=== PATIENT | male | born 1965 | race Caucasian/White ===

== ENCOUNTER 2016-04-05 13:01 | Emergency (ER) | payer SELFPAY ==
[~2016-04-05] VITALS: Ht 160 cm; Wt 67.1 kg
[~2016-04-05 13:01] MED LIST: CIPRO500 MG PO; FLAGYL250 MG PO
[2016-04-05 13:03] VITALS: BP 102/64
[2016-04-05] MEDS ORDERED: IBUPROFEN200 MG PO (13:09)
[2016-04-05] MEDS ORDERED: PENICILLIN PO (13:09)
--- NOTE | 2016-04-05 14:31 | NUR ---
DR MOBLEY ASSESSING THE PT AT BEDSIDE
--- NOTE | 2016-04-05 14:31 | NUR ---
50/M BIB C/O FEVER, COUGH/CONGESTION X3DAYS. STS TAKING PENICILLIN AND IBUPROFEN AT HOME. LAST TAKEN IBUPROFEN AT 1030. DENIES N/V/D; SKIN IS PINK/WARM/DRY; AAOX4 WITH EVEN AND STEADY GAIT; LUNGS CLEAR BL; HR EVEN AND REGULAR; PT DENIES ANY CP, OR SOB AT THIS TIME; PATIENT STATES PAIN OF 0/10 AT THIS TIME; VSS; PATIENT POSITIONED FOR COMFORT; HOB ELEVATED; BEDRAILS UP X2; BED DOWN. ER MD MADE AWARE OF PT STATUS.
[2016-04-05 16:10] VITALS: BP 102/64
--- NOTE | 2016-04-05 16:10 | NUR ---
Patient discharged with v/s stable. Written and verbal after care instructions given and explained. Patient alert, oriented and verbalized understanding of instructions. Ambulatory with steady gait. All questions addressed prior to discharge. ID band removed. Patient advised to follow up with PMD. Rx of TYLENOL, GUAIATUSSIN given. Patient educated on indication of medication including possible reaction and side effects. Opportunity to ask questions provided and answered.
== END 2016-04-05 16:10 | disposition home or self-care (01) ==
LOC: MED 13:01
DX: B34.9 Viral infection, unspecified (principal)

== ENCOUNTER 2017-06-11 20:20 | Emergency (ER) | payer SELFPAY ==
[~2017-06-11] VITALS: Ht 154.9 cm; Wt 67.6 kg
[2017-06-11 20:32] VITALS: BP 103/48
--- NOTE | 2017-06-11 20:35 | NUR ---
PT.AMBULATED TO [facility]
[2017-06-11 21:09] LABS: BASOPHILS # (AUTO) 0.4 K/uL (0.00-0.22); EOSINOPHILS # (AUTO) 0.3 K/uL (0-0.4); HEMOGLOBIN 13.5 g/dL (12.0-18.0); MEAN CORPUSCULAR HEMOGLOBIN 32 pg (27-31); MEAN CORPUSCULAR HGB CONC 34 g/dL (33-37); MEAN CORPUSCULAR VOLUME 93 fL (80-94); MONOCYTES # (AUTO) 0.7 K/uL (0.8-1.0); NEUTROPHILS # (AUTO) 2.3 K/uL (1.8-7.7); PLATELET COUNT (AUTO) 220 K/uL (140-450); RED CELL DISTRIBUTION WIDTH 12.9 % (11.6-13.7); WHITE BLOOD COUNT (AUTO) 5.7 K/uL (4.8-10.8)
[2017-06-11 21:47] LABS: ALBUMIN 3.6 g/dL (3.4-5.0); CARBON DIOXIDE 28.7 mmol/L (21-32); POTASSIUM 3.7 mmol/L (3.5-5.1); TOTAL BILIRUBIN 0.3 mg/dL (0.0-1.0)
--- NOTE | 2017-06-11 23:41 | NUR ---
PT TAKEN TO BED 10
--- NOTE | 2017-06-11 23:45 | NUR ---
52/M CAME IN W C/O 01/12 LLQ ABD PAIN, PROGRESSIVELY WORSENING X 4MONTHS. PT STATES PAIN WORSENED TODAY. DENIES N/V/D, CONSTIPATION, MELENA/HEMATOCHEZIA, DENIES HEMATURIA, REPORTS DYSURIA, TRAUMA/INJURY. ABD SOFT, ROUND, +TENDERNESS TO LLQ. DENIES OTHER PMH/RX/OTC
[2017-06-11] MEDS ORDERED: KETOROLAC 60 MG/2 ML VIAL IM ONE (23:50)
--- NOTE | 2017-06-12 00:20 | NUR ---
Patient discharged with v/s stable. Written and verbal after care instructions given and explained. Patient alert, oriented and verbalized understanding of instructions. Ambulatory with steady gait. All questions addressed prior to discharge. ID band removed. Patient advised to follow up with PMD. Rx of IBUPROFEN AND CIPRO given. Patient educated on indication of medication including possible reaction and side effects. Opportunity to ask questions provided and answered.
[2017-06-12 00:21] VITALS: BP 132/68
== END 2017-06-12 00:20 | disposition home or self-care (01) ==
LOC: MED 20:20
DX: N39.0 Urinary tract infection, site not specified (principal)
CPT/HCPCS: 36415; 74176; 80053; 81002; 83690; 85025; 96372; 99285; J1885